=== PATIENT | female | born 1985 | race Caucasian/White ===

== ENCOUNTER 2019-04-06 08:22 | Emergency (ER) | payer SELFPAY ==
[2019-04-06 08:36] VITALS: BP 114/83
--- NOTE | 2019-04-06 08:37 | PHYS DOC ---
Adult General Chief Complaint Chief Complaint: VAGINAL PROBLEM HPI HPI Patient is a 33-year-old female who presents with three-day history of pain with urination, frequency and suprapubic pain. Patient states that symptoms are progressively worsening. She states that she is having a little bit of urge in continence. She denies any fever or back pain. He also denies any nausea or vomiting. Patient states that she just finished her menstrual cycle and states that she has had some intermittent spotting and is concerned that she could be .[] Review of Systems Review of Systems Constitutional: Denies fever or chills [] Respiratory: Denies cough or shortness of breath [] Cardiovascular: No additional information not addressed in HPI [] GI: Complains of suprapubic pain without vomiting or diarrhea [] : Complains of urinary frequency and dysuria[] Musculoskeletal: Denies back pain or joint pain [] Physical Exam Physical Exam Constitutional: Well developed, well nourished, no acute distress, non-toxic appearance. [] Cardiovascular:Heart rate regular rhythm, no murmur [] Lungs & Thorax: Bilateral breath sounds clear to auscultation [] Abdomen: Bowel sounds normal, soft, with suprapubic tenderness. [] Skin: Warm, dry, no erythema, no rash. [] Neurologic: Alert and oriented X 3, no focal deficits noted. [] EKG EKG [] Radiology/Procedures Radiology/Procedures [] Course & Med Decision Making Course & Med Decision Making Pertinent Labs and Imaging studies reviewed. (See chart for details) [] Dragon Disclaimer Dragon Disclaimer This electronic medical record was generated, in whole or in part, using a voice recognition dictation system. Departure Departure: Impression: Primary Impression: UTI (urinary tract infection) Disposition: 01 HOME, SELF-CARE Condition: STABLE Referrals: PCP,NO (PCP) Patient Instructions: Urinary Tract Infection Scripts Phenazopyridine Hcl (PYRIDIUM) 100 Mg Tablet 1 TAB PO TID PRN for URINARY PAIN for 3 Days, #9 TAB 0 Refills Prov: WINDY AMEZQUITA Jr. DO 04/06/19 Sulfamethoxazole/Trimethoprim (BACTRIM DS TABLET) 1 Each Tablet 1 TAB PO BID for uti for 7 Days, #14 TAB 0 Refills Prov: WINDY AMEZQUITA Jr. DO 04/06/19 Problem Qualifiers Primary Impression: UTI (urinary tract infection) Urinary tract infection type: site unspecified Hematuria presence: with hematuria Qualified Codes: N39.0 - Urinary tract infection, site not specified; R31.9 - Hematuria, unspecified WINDY AMEZQUITA Jr. DO Apr 06, 2019 08:37
[2019-04-06 09:04] LABS: SQUAMOUS EPITHELIAL CELL,UR FEW /LPF
[2019-04-06 09:07] LABS: BACTERIA,URINE MOD /HPF (0-FEW); BILIRUBIN,URINE NEG (NEG); CLARITY,URINE HAZY; COLOR,URINE YELLOW; GLUCOSE,URINE NEG (NEG); NITRITE,URINE NEG (NEG); UROBILINOGEN,URINE 0.2 mg/dL (0.2 mg/dL); WBC,URINE >40 /HPF (0-4)
[2019-04-06] MEDS ORDERED: SULF1TAB24 PO (09:11)
[2019-04-06] MEDS ORDERED: PHEN100T82 PO (09:11)
== END 2019-04-06 09:16 | disposition home or self-care (01) ==
LOC: ER 08:22
DX: N39.0 Urinary tract infection, site not specified (principal); R31.9 Hematuria, unspecified
CPT/HCPCS: 81001; 81025; 87086; 99284